=== PATIENT | female | born 1970 | race Caucasian/White ===

== ENCOUNTER 2020-07-01 06:47 | Outpatient (NON) | payer OTHER, SELFPAY ==
[2020-07-02 01:24] LABS: SARS-CoV-2 RNA PCR Negative
== END 2020-07-01 06:48 ==
PROVIDERS: PCP Family Medicine; Visit Provider Chiropractor Rehabilitation
DX: Z20.828 Contact with and (suspected) exposure to other viral communicable diseases (principal); R09.89 Other specified symptoms and signs involving the circulatory and respiratory systems
CPT/HCPCS: 87635; C9803; U0003

== ENCOUNTER 2021-07-21 14:57 | Emergency (ER) | payer OTHER, SELFPAY ==
--- NOTE | ~2021-07-21 | XR_ITS ---
EXAMINATION: XR ankle RT min 3V INDICATION: Right ankle pain TECHNIQUE: Four views of the right ankle are obtained. COMPARISON: None available FINDINGS: Bone alignment is normal. There is no fracture. There is mild soft tissue swelling of ankle . IMPRESSION: 1. No acute osseous abnormality. Reviewed, dictated and finalized at location F. N RESOURCES RECEPTIONIST
--- NOTE | ~2021-07-21 | XR_ITS ---
EXAMINATION: XR foot RT min 3V DATE: 07/21/2021 15:32 INDICATION: Right foot pain TECHNIQUE: Dorsoplantar, lateral, and 2 oblique views of the right foot were obtained. COMPARISON: None. FINDINGS: There is no fracture, dislocation, or subluxation. The bones, soft tissues, and joint space s are normal. IMPRESSION: 1. No acute osseous abnormality. Reviewed, dictated and finalized at location F. RGLASS BOAT PARTS FINISHER
--- NOTE | 2021-07-21 15:14 | ED.LOWEXIN ---
HPI - Extremity Injury (Lower) General Chief Complaint: Extremity Injury, Lower Stated Complaint: rt ankle injury Time Seen by Provider: 07/21/21 15:21 Source: patient Mode of arrival: ambulatory Limitations: no limitations History of Present Illness HPI Narrative: Dena is a 50-year-old female patient who ambulated into the [facility]. Patient states she was at the gym this morning and jumped and twisted her right ankle. Patient states she has had a previous ankle sprain on that side. Patient reports bruising and swelling to the lateral ankle. Patient rates the pain 5 out of 10 with standing.. Patient states pain is a 0 when sitting MD complaint: ankle injury Related Data Home Medications Medication Instructions Recorded Confirmed No Home Medications 07/21/21 07/21/21 Allergies Allergy/AdvReac Type Severity Reaction Status Date / Time Sulfa (Sulfonamide Allergy Unknown Unknown Verified 07/21/21 15:21 Antibiotics) sulfamethizole Allergy Unknown Unknown Verified 01/16/21 11:03 sulfamethoxazole Allergy Unknown Unknown Verified 01/16/21 11:03 trimethoprim Allergy Unknown unk Verified 01/16/21 11:03 Review of Systems Review of Systems: CONSTITUTIONAL: Denies body aches, fever, chills, or sweats. EYES: Denies visual changes, redness, or discharge. ENT: Denies rhinorrhea, congestion, sore throat, or otalgia. CARDIOVASCULAR: Denies chest pain, palpitations, or edema. RESPIRATORY: Denies cough or dyspnea. GASTROINTESTINAL: Denies abdominal pain, nausea, vomiting, or diarrhea. GENITOURINARY: Denies dysuria or hematuria. SKIN: Denies rash, itching, or wounds. MUSCULOSKELETAL: Denies back pain, joint pain, or myalgia.+ Right ankle pain and swelling NEUROLOGIC: Denies headache, numbness, tingling, or weakness. PSYCH: Denies depression or anxiety. All systems reviewed & are unremarkable except as noted in HPI and below PMFSH Family History Family History Mother Family history of malignant neoplasm of breast in first degree relative Other Family history of diabetes mellitus in first degree relative Social History Social History Smoking status: Never smoker Alcohol intake: never Substance use: never Gender identity (if verbalized by the patient): Female Comments At time of signature, I have reviewed and agree with nursing past medical, surgical, social and family history unless otherwise noted. Please see nursing chart for further information. There is no relevant family history pertinent to the presenting complaint Exam Narrative: GENERAL: Well-appearing, well-nourished, and in no acute distress. HEAD: Normocephalic, atraumatic. EYES: EOMI. No redness or drainage. Conjunctivae normal. ENT: Mucous membranes pink and moist. Nares clear. No rhinorrhea. TMs normal bilaterally. Throat normal. Uvula midline. NECK: Normal AROM. Supple. No lymphadenopathy. CHEST: No respiratory distress. Clear to auscultation. HEART: Regular rate and rhythm. No murmur appreciated. Normal peripheral pulses. ABDOMEN: Soft, nontender, nondistended, normal active bowel sounds. MUSCULOSKELETAL: No bony tenderness. EXTREMITIES: Right lateral malleolus with edema and ecchymosis, full range of motion noted. Neurovascular exam intact pedal pulse present SKIN: Warm, dry, no rash. Capillary refill normal. Normal skin turgor. NEURO: No focal deficits. Alert and oriented x3. Gait steady. PSYCH: Normal affect. No signs of depression or anxiety. Course Course Emergency Course: Patient was evaluated. Right ankle and right foot x-rays were ordered. Level of Care: Express Care Visit Vital Signs Vital signs: Vital Signs Temperature 37.0 C 07/21/21 15:19 Pulse Rate 65 07/21/21 15:19 Respiratory Rate 18 07/21/21 15:19 Blood Pressure 126/71 07/21/21 15:19 Pulse Oximetry 98 07/21/21 15:19 Tempera
[2021-07-21 15:19] VITALS: BP 126/71; PULSE 65; RESP 18; TEMP 37; O2SAT 98
== END 2021-07-21 15:54 | disposition home or self-care (01) ==
PROVIDERS: Emergency Provider Nurse Practitioner Family; PCP Family Medicine
DX: S93.401A Sprain of unspecified ligament of right ankle, initial encounter (principal); S96.911A Strain of unspecified muscle and tendon at ankle and foot level, right foot, initial encounter; X50.9XXA Other and unspecified overexertion or strenuous movements or postures, initial encounter
CPT/HCPCS: 73610; 73630; 99213; G0463

== ENCOUNTER 2021-11-15 16:20 | Outpatient (CLI) | payer OTHER, SELFPAY ==
--- NOTE | ~2021-11-15 | XR_ITS ---
XR chest 2V DATE: 11/15/2021 16:44 INDICATION: Chest tightness, left side. Dizziness. Shortness of breath for 3 days. TECHNIQUE: PA and lateral views COMPARISON: None FINDINGS: Mild bilateral hyperinflation. No pulmonary infiltrate or consolidation, pleural effusion o r pulmonary vascular congestion or pneumothorax. Normal heart size. No hilar or mediastinal enlargement. Mild levoscoliosis of the upper thoracic spine. IMPRESSION: Mild hyperinflation; otherwise no active cardiopulmonary disease Reviewed, dictated and finalized at location A.
== END 2021-11-15 16:21 | disposition home or self-care (01) ==
LOC: ANHIMG 16:24
PROVIDERS: PCP Family Medicine; Visit Provider Nurse Practitioner Family
DX: R07.9 Chest pain, unspecified (principal); R91.8 Other nonspecific abnormal finding of lung field
CPT/HCPCS: 71046

== ENCOUNTER 2022-03-01 00:17 | Day surgery (SDC) | payer OTHER, SELFPAY ==
[2022-02-18 15:09] VITALS: BMI 24.2
[2022-03-01 08:24] VITALS: BMI 25.0
[2022-03-01 08:27] VITALS: BP 108/52; PULSE 63; RESP 16; TEMP 36.4; O2SAT 99
[2022-03-01] MEDS: LACTATED RINGERS 1,000 ML 150 ML IV CONT (08:34)
--- NOTE | 2022-03-01 09:00 | WPDANESEPPF ---
Anes - Initial Pre Proc Eval Procedure: Operation Date: 03/01/22 09:30 Proposed Procedures p Screening Colonoscopy - Emigdio Bush MD Date/Time: 03/01/22 09:00 Surgeon: Emigdio Bush MD Pre Op Diagnosis: neoplasm screening Patient Data Age: 51 Gender: F Height: 1.68 m Weight: 70.4 kg Last Vital Signs Temp 97.5 F L 03/01/22 08:27 Pulse 63 03/01/22 08:27 Resp 16 03/01/22 08:27 BP 108/52 L 03/01/22 08:27 Pulse Ox 99 03/01/22 08:27 O2 Del Method Room Air 03/01/22 08:27 Allergies Allergy/AdvReac Type Severity Reaction Status Date / Time Sulfa (Sulfonamide Allergy Unknown Hives Verified 02/18/22 15:00 Antibiotics) sulfamethizole Allergy Unknown Hives Verified 02/18/22 15:00 sulfamethoxazole Allergy Unknown Hives Verified 02/18/22 15:00 trimethoprim Allergy Unknown Hives Verified 02/18/22 15:00 Home Medications Medication Instructions Recorded Confirmed Type gabapentin 300 mg capsule 300 mg PO QHS #90 caps 11/15/21 02/18/22 Rx sertraline 25 mg tablet (Zoloft) 25 mg PO DAILY #30 tabs 11/15/21 02/18/22 Rx albuterol sulfate 90 mcg/actuation 1 - 2 puff inhalation Q4H PRN 12/07/21 02/18/22 Rx aerosol inhaler shortness of breath or wheezing #8.5 grams sodium sul 1.479 gram-potas ch See Rx Instructions PO PER PKG DIR 12/27/21 Rx 0.188 gram-magnes sul 0.225 gram #24 tabs tablet (Sutab) eletriptan 40 mg tablet 40 mg PO DAILY 02/18/22 02/18/22 History magnesium 200 mg tablet 200 mg PO DAILY 02/18/22 02/18/22 History trazodone 50 mg tablet 50 mg PO HS 02/18/22 02/18/22 History Patient hx anesthesia problems: none Family hx anesthesia problems: none Results Review: All pre-operative results and documents have been reviewed as part of the pre-operative evaluation. [facility] Family History Family History Mother Family history of malignant neoplasm of breast in first degree relative Other Family history of diabetes mellitus in first degree relative Social History Social History Smoking status: Never smoker Alcohol intake: never Substance use: never Living arrangements: with family Gender identity (if verbalized by the patient): Female Spiritual care concerns: No Anes - Eval Final PreProcedure Day of Procedure 03/01/22 09:00 Patient weight: normal Heart: regular rate and rhythm Lungs: clear to auscultation Airway: Mallampati scale class II Neurological: alert and oriented Last oral intake: >/= 8 hours ASA classification: II Emergent: no Anesthetic plan: proceed Anesthesia type and monitoring: general GIVS and standard monitoring Results Review: All pre-operative results and documents have been reviewed as part of the pre-operative evaluation. Informed Consent: The patient's anesthetic plan and its attendant risks and benefits were discussed with the patient/family/POA. Questions were solicited and answers provided to the satisfaction of the patient/family/POA.
--- NOTE | 2022-03-01 09:05 | PM.HPGS ---
History of Present Illness History of Present Illness Consent: Risks, benefits, and alternatives have been discussed and questions answered. Patient agrees to proceed with procedure. Chief complaint: neoplasm screening Narrative: Dena Tatum is a 51 year old female here for first screening colonoscopy Review of Systems Constitutional: Constitutional: Denies headache(s) and Denies weakness Eyes: Eyes: Denies blurry vision ENT: Reports Normal hearing present, Denies headache(s) and Denies neck pain Cardiovascular: Cardiovascular: Denies chest pain and Denies dyspnea Respiratory: Respiratory: Denies dyspnea Gastrointestinal: Gastrointestinal: Reports no additional gastrointestinal complaints Genitourinary: Genitourinary: Denies dysuria Musculoskeletal: Musculoskeletal: Denies neck pain Integumentary/Breasts: Skin/Breast: Denies dry skin Neurologic: Reports Normal hearing present, Denies headache(s) and Denies weakness Psychiatric: Psychiatric: Denies anxiety Endocrine: Endocrine: Denies change in body appearance Hematologic/Lymphatic: Hematologic/Lymphatic: Denies easy bleeding Allergic/Immunologic: Allergic/Immunologic: Denies urticaria [facility] Past Medical History Medical History (Updated 03/01/22 @ 09:05 by Emigdio Bush MD) Colon cancer screening Family History Family History Mother Family history of malignant neoplasm of breast in first degree relative Other Family history of diabetes mellitus in first degree relative Social History Social History Smoking status: Never smoker Alcohol intake: never Substance use: never Living arrangements: with family Gender identity (if verbalized by the patient): Female Spiritual care concerns: No Meds Home Medications and Allergies Home Medications Medication Instructions Recorded Confirmed Type gabapentin 300 mg capsule 300 mg PO QHS #90 caps 11/15/21 02/18/22 Rx sertraline 25 mg tablet (Zoloft) 25 mg PO DAILY #30 tabs 11/15/21 02/18/22 Rx albuterol sulfate 90 mcg/actuation 1 - 2 puff inhalation Q4H PRN 12/07/21 02/18/22 Rx aerosol inhaler shortness of breath or wheezing #8.5 grams sodium sul 1.479 [facility] See Rx Instructions PO PER PKG DIR 12/27/21 Rx 0.188 gram-magnes sul 0.225 gram #24 tabs tablet (Sutab) eletriptan 40 mg tablet 40 mg PO DAILY 02/18/22 02/18/22 History magnesium 200 mg tablet 200 mg PO DAILY 02/18/22 02/18/22 History trazodone 50 mg tablet 50 mg PO HS 02/18/22 02/18/22 History Allergies Allergy/AdvReac Type Severity Reaction Status Date / Time Sulfa (Sulfonamide Allergy Unknown Hives Verified 02/18/22 15:00 Antibiotics) sulfamethizole Allergy Unknown Hives Verified 02/18/22 15:00 sulfamethoxazole Allergy Unknown Hives Verified 02/18/22 15:00 trimethoprim Allergy Unknown Hives Verified 02/18/22 15:00 Vital Signs Vital Signs - 24 hr 03/01/22 08:27 Temperature 97.5 F L Pulse Rate 63 Respiratory Rate 16 Blood Pressure 108/52 L Pulse Oximetry 99 Oxygen Delivery Room Air Exam Const: General: comfortable and no acute distress HENMT: General nose exam: Normal nares present Eyes: General: appearance normal, both eyes and all related structures Neck: Neck: no JVD Resp: Auscultation: clear to auscultation bilaterally Cardio: Rate: regular rate Rhythm: regular rhythm GI: Inspection: non-distended GI Palp: Yes Soft to palpation Skin: General skin exam: normal color Neuro: General: gait normal Speech: normal speech Extrem: General: normal to inspection Psych: Mental Status: mental status grossly normal Assessment and Plan Assessment and plan (1) Colon cancer screening: Code(s): Z12.11 - Encounter for screening for malignant neoplasm of colon Status: Acute Assessment and Plan: colonoscopy
[2022-03-01 09:23] VITALS: BP 93/54; PULSE 70; RESP 23; O2SAT 99
[2022-03-01 09:33] VITALS: BP 111/58; PULSE 54; RESP 18; O2SAT 100
[2022-03-01 09:43] VITALS: BP 113/69; PULSE 50; RESP 18; O2SAT 100
== END 2022-03-01 10:00 | disposition home or self-care (01) ==
PROVIDERS: PCP Family Medicine; Visit Provider Internal Medicine Gastroenterology
PROC: 0DJD8ZZ Inspection of Lower Intestinal Tract, Via Natural or Artificial Opening Endoscopic (ICD-10-PCS; CPT 45378; principal; 2022-03-01 09:30)
DX: Z12.11 Encounter for screening for malignant neoplasm of colon (principal); D12.3 Benign neoplasm of transverse colon; K57.30 Diverticulosis of large intestine without perforation or abscess without bleeding; K64.8 Other hemorrhoids; Z80.3 Family history of malignant neoplasm of breast; Z79.51 Long term (current) use of inhaled steroids; Z79.899 Other long term (current) drug therapy
CPT/HCPCS: 45385; 88305; J2704; J7120

== ENCOUNTER → 2022-06-04 10:51 | Outpatient (CLI) | payer OTHER, SELFPAY ==
--- NOTE | ~2022-06-04 | MM_ITS ---
EXAMINATION: MM scrn mary implant BI w meaghan HISTORY: Screening mammogram TECHNIQUE: Craniocaudal and mediolateral oblique 3-D tomosynthesis images with implant displacement a nd synthetic 2-D images were generated. Craniocaudal and mediolateral oblique views of the breasts wi thout implant displacement were obtained using full field digital mammography. CAD analysis was submi tted and interpreted. COMPARISON: 09/16/2018, 06/05/2016, 02/09/2015 bilateral implant screening mammogram examinations BREAST PARENCHYMAL COMPOSITION: The breasts are heterogeneously dense, which may obscure small masses . FINDINGS: There is no evidence of suspicious mass, calcification, or architectural distortion to sugg est malignancy in either breast. There has been no suspicious interval change. IMPRESSION: 1. No mammographic evidence of malignancy. 2. Recommend routine screening mammography in one year. BI-RADS Category 1: Negative Reviewed, dictated and finalized at location A. HANDLER
--- NOTE | ~2022-06-04 | DEXA_ITS ---
Bone Density Report Name: ISABEL ESTEBAN Age: 51 Sex: Female Ethnicity: White Date of : 1970 Indication: postmenopausal; screening for osteoporosis; height loss; Referring Provider: ANDRES ODEN Study: Bone densitometry was performed. Exam Date: June 04, 2022 Accession number: [id number] Bone Density: Region BMD T-score Z-score Classification AP Spine (L1-L4) 1.038 -0.1 0.7 Normal Femoral Neck (Left) 0.752 -0.9 -0.1 Normal Total Hip (Left) 0.872 -0.6 -0.1 Normal Femoral Neck (Right) 0.790 -0.5 0.2 Normal Total Hip (Right) 0.886 -0.5 0.0 Normal Total Hip Mean 0.879 -0.6 -0.1 Normal World Health Organization criteria for BMD impression classify patients as: Normal (T-score at or above -1.0), Osteopenia (T-score between -1.0 and -2.5), or Osteoporosis (T-score at or below -2.5). 10-year Fracture Risk: FRAX not reported because: All T-scores for Spine Total, Hip Total, Femoral Neck at or above -1.0 Clinical Information Provided by Patient: Has used the following medications: Vitamin D Patient maximum height was 66.0 Menopause Age: 49 Drinks caffeinated beverages Onset of menses at age 15 Number of children 3 Impression: The patient has normal bone mass. Discussion: BONE DENSITY IS ABOVE THE MINIMUM DESIRABLE LEVEL AT ALL SKELETAL SITES TESTED. This patient?s bone mineral density is above the minimum desirable level (T-score -1.0 or better) at all sites measured. The patient should follow a healthful lifestyle (good nutrition with adequate calcium and vitamin D, and appropriate weight-bearing exercise). Follow-Up: Consider repeating this study in 5 years or sooner if there is some new clinical indication. Reported by: NAPOLEON on 06/04/2022 11:16:00 AM. Reviewed, dictated and finalized at location AHeide BOLES
== END ==
PROVIDERS: PCP Family Medicine; Visit Provider Obstetrics & Gynecology Gynecology
DX: Z12.31 Encounter for screening mammogram for malignant neoplasm of breast (principal); Z78.0 Asymptomatic menopausal state
CPT/HCPCS: 77063; 77067; 77080